=== PATIENT | female | born 1970 | race Caucasian/White ===

== ENCOUNTER 2024-08-08 15:02 | Outpatient (CLI) | payer BC | END 2024-08-08 15:03 | disposition home or self-care (01) | LOC: CSHMAMMO 15:02 | PROVIDERS: ATTEND Obstetrics & Gynecology | DX: M81.0 Age-related osteoporosis without current pathological fracture (principal); E05.90 Thyrotoxicosis, unspecified without thyrotoxic crisis or storm | CPT/HCPCS: 77080 ==

== ENCOUNTER 2025-09-05 09:43 | Outpatient (CLI) | payer BC, MEDICARE | END 2025-09-05 09:44 | disposition home or self-care (01) | LOC: CSHMAMMO 09:43 | PROVIDERS: ATTEND Student in an Organized Health Care Education/Training Program | DX: Z12.31 Encounter for screening mammogram for malignant neoplasm of breast (principal); R92.1 Mammographic calcification found on diagnostic imaging of breast | CPT/HCPCS: 77063; 77067 ==

== ENCOUNTER 2025-09-07 09:11 | Outpatient (CLI) | payer BC, MEDICARE | END 2025-09-07 09:12 | disposition home or self-care (01) | LOC: CSHMAMMO 09:11 | PROVIDERS: ATTEND Student in an Organized Health Care Education/Training Program | DX: R92.1 Mammographic calcification found on diagnostic imaging of breast (principal); R92.333 Mammographic heterogeneous density, bilateral breasts | CPT/HCPCS: G0279 ==